=== PATIENT | female | born 1935 | race Caucasian/White ===

== ENCOUNTER 2021-04-28 18:27 | Emergency (ER) | payer OTHER ==
[~2021-04-28] VITALS: Ht 157.5 cm; Wt 45.4 kg
[2021-04-28 18:27] VITALS: BP_SYST 160
[2021-04-28 20:08] LABS: ANION GAP 4 (5-15); CALCIUM 9.6 mg/dL (8.4-11.0); CHLORIDE 106 mmol/L (98-107); CREATININE 0.65 mg/dL (0.55-1.30); GLUCOSE 92 mg/dL (70-99); POTASSIUM 3.6 mmol/L (3.5-5.1); SODIUM SERUM 143 mmol/L (136-145); UREA NITROGEN, BLOOD 18 mg/dL (8-21)
[2021-04-28 20:14] LABS: ALANINE AMINOTRANSFERASE 19 U/L (12-78); ALBUMIN 3.8 g/dL (3.4-4.8); ASPARTATE AMINOTRANSFERASE 17 U/L (10-37); TOTAL BILIRUBIN 0.2 mg/dL (0.0-1.0)
[2021-04-28 20:31] LABS: INR 0.9 (0.8-1.2); PROTHROMBIN TIME 9.8 SECS (9.5-12.5)
[2021-04-28 20:40] LABS: BASOPHILS % (AUTO) 0.5 % (0.0-2.0); EOSINOPHILS # (AUTO) 0.1 K/uL (0.0-0.4); EOSINOPHILS % (AUTO) 1.1 % (0.0-4.0); HEMATOCRIT 37.7 % (36-48); HEMOGLOBIN 12.4 g/dL (12.0-16.0); LYMPHOCYTES # (AUTO) 1.6 K/uL (1.0-5.5); LYMPHOCYTES % (AUTO) 26.6 % (20.5-51.5); MEAN CORPUSCULAR HEMOGLOBIN 32 pg (27-31); MEAN CORPUSCULAR HGB CONC 33 % (32-36); MEAN CORPUSCULAR VOLUME 96 fL (79.0-98.0); MONOCYTES # (AUTO) 0.5 K/uL (0.0-1.0); MONOCYTES % (AUTO) 9.1 % (1.7-9.3); NEUTROPHILS # (AUTO) 3.7 K/uL (1.8-7.7); NEUTROPHILS % (AUTO) 62.7 % (40.0-70.0); PLATELET COUNT (AUTO) 193 K/uL (130-430); RED BLOOD CELL COUNT(AUTO) 3.91 MIL/uL (4.2-6.2); RED CELL DISTRIBUTION WIDTH 13.7 % (9.0-15.0); WHITE BLOOD COUNT (AUTO) 5.9 K/uL (4.8-10.8)
[2021-04-28 21:55] VITALS: BP_SYST 142
== END 2021-04-28 21:55 | disposition home or self-care (01) ==
LOC: SED 18:27 → EDBD 18:27 → SED 21:55
DX: S00.03XA Contusion of scalp, initial encounter (principal); I10 Essential (primary) hypertension; W01.198A Fall on same level from slipping, tripping and stumbling with subsequent striking against other object, initial encounter; Y93.89 Activity, other specified; Y92.89 Other specified places as the place of occurrence of the external cause; Y99.8 Other external cause status
CPT/HCPCS: 36415; 70450-TC; 71045; 76376; 80053; 83880; 84484; 85025; 85610-TC; 85730-TC; 93005; 99285

== ENCOUNTER 2021-12-28 06:23 | Inpatient (IN) | payer OTHER, SELFPAY ==
[~2021-12-28] VITALS: Ht 152.4 cm; Wt 39.0 kg
[2021-12-28 06:23] VITALS: BP_SYST 150
[2021-12-28] MEDS ORDERED: NACL 0.9% 1,000 ML IV ONE (06:45)
[2021-12-28] MEDS ORDERED: MORPHINE 4 MG INJ. 4 MG/ML VIAL IVP ONE (06:45)
[2021-12-28] MEDS ORDERED: ONDANSETRON HCL 4 MG/2 ML VIAL IVP ONE (06:45)
[2021-12-28 07:13] LABS: BASOPHILS % (AUTO) 0.5 % (0.0-2.0); EOSINOPHILS # (AUTO) 0.1 K/uL (0.0-0.4); EOSINOPHILS % (AUTO) 1.1 % (0.0-4.0); HEMOGLOBIN 12.3 g/dL (12.0-16.0); LYMPHOCYTES % (AUTO) 10.4 % (20.5-51.5); MEAN CORPUSCULAR HEMOGLOBIN 31 pg (27-31); MEAN CORPUSCULAR HGB CONC 32 % (32-36); MEAN CORPUSCULAR VOLUME 96 fL (79.0-98.0); MONOCYTES # (AUTO) 0.5 K/uL (0.0-1.0); MONOCYTES % (AUTO) 5.5 % (1.7-9.3); NEUTROPHILS # (AUTO) 7.8 K/uL (1.8-7.7); NEUTROPHILS % (AUTO) 82.5 % (40.0-70.0); PLATELET COUNT (AUTO) 164 K/uL (130-430); RED BLOOD CELL COUNT(AUTO) 3.95 MIL/uL (4.2-6.2); WHITE BLOOD COUNT (AUTO) 9.4 K/uL (4.8-10.8)
[2021-12-28 07:33] LABS: PROTHROMBIN TIME 10.5 SECS (9.5-12.5)
[2021-12-28 07:58] LABS: ALANINE AMINOTRANSFERASE 24 U/L (12-78); ALBUMIN 3.8 g/dL (3.4-4.8); ANION GAP 8 (5-15); ASPARTATE AMINOTRANSFERASE 22 U/L (10-37); CALCIUM 8.7 mg/dL (8.4-11.0); CHLORIDE 104 mmol/L (98-107); CREATININE 0.68 mg/dL (0.55-1.30); GLUCOSE 112 mg/dL (70-99); POTASSIUM 3.5 mmol/L (3.5-5.1); SODIUM SERUM 141 mmol/L (136-145); TOTAL BILIRUBIN 0.4 mg/dL (0.0-1.0); UREA NITROGEN, BLOOD 31 mg/dL (8-21)
[2021-12-28] MEDS ORDERED: fentaNYL CITRATE/PF 100 MCG/2 ML AMP IVP ONE ×4 (08:00→10:15)
[2021-12-28] MEDS ORDERED: LIDOCAINE 1% 10 MG/ML, 20 ML MDV INJ ONE (09:40)
[2021-12-28] MEDS ORDERED: SEVOFLURANE 15 MIN GAS INH ONE (09:40)
[2021-12-28] MEDS ORDERED: cefTRIAXone 1 GM VIAL IV ONE (09:40)
[2021-12-28] MEDS ORDERED: PROPOFOL 200MG/ 20ML VIAL (DIPRIVAN) IV ONE (09:40)
[2021-12-28] MEDS ORDERED: METOCLOPRAMIDE HCL 10 MG/2 ML VIAL IVP ONE (09:40)
[2021-12-28] MEDS ORDERED: DEXAMETHASONE SOD PHOSPHATE 4 MG/ML VIAL IVP ONE (09:40)
[2021-12-28] MEDS ORDERED: NS 1000 ML IV.SOLN IV ONE (09:40)
[2021-12-28] MEDS ORDERED: MEPERIDINE 100 MG INJ. 100 MG/ML VIAL IM ONE (09:40)
[2021-12-28] MEDS ORDERED: KETOROLAC TROMETHAMINE 30 MG VIAL IVP ONE (09:40)
[2021-12-28] MEDS ORDERED: ePHEDrine sulfate 50 MG/ML VIAL IVP ONE (09:40)
[2021-12-28] MEDS ORDERED: MIDAZOLAM HCL 5 MG/5 ML VIAL IVP ONE (09:40)
[2021-12-28] MEDS ORDERED: CEFAZOLIN 1 GM IVPB PREMIX 50 ML IV ONE (09:40)
[2021-12-28] MEDS ORDERED: DIPHENHYDRAMINE INJ 50 MG/ML VIAL IVP ONE (10:15)
[2021-12-28] MEDS ORDERED: HYDROmorphone 2 MG/ML VIAL IVP PRN (11:00)
[2021-12-28] MEDS ORDERED: ONDANSETRON HCL 4 MG/2 ML VIAL IVP PRN (11:00)
[2021-12-28 11:39] VITALS: BP_SYST 153
[2021-12-28] MEDS ORDERED: NALOXONE HCL 0.4 MG/ML AMP (NARCAN) IVP PRN (12:00)
[2021-12-28] MEDS: MORPHINE 4 MG INJ. 4 MG/ML VIAL IVP PRN ×3 (12:07→20:13)
[2021-12-28] MEDS: cefTRIAXone 1 GM IVPB PREMIX 50 ML IV SCH (12:09)
[2021-12-28] MEDS: D5/0.45 NS 1,000 ML IV SCH (12:16)
[2021-12-28 12:42] LABS: BILIRUBIN,URINE NEGATIVE (NEGATIVE); BLOOD, URINE NEGATIVE (NEGATIVE); CLARITY/URINE CLEAR (CLEAR); COLOR,URINE YELLOW (YELLOW); GLUCOSE,URINE NEGATIVE (NEGATIVE); KETONES,URINE NEGATIVE (NEGATIVE); LEUKOCYTE ESTERASE ,URINE NEGATIVE (NEGATIVE); NITRITE, URINE NEGATIVE (NEGATIVE); PROTEIN URINE NEGATIVE (NEGATIVE); UROBILINOGEN,URINE 0.2 (0.2-1.0)
[2021-12-28 13:20] LABS: BARBITURATE, URINE NEGATIVE (NEG <=200); BENZODIAZEPINE, URINE NEGATIVE (NEG <=150); CANNABINOID, URINE NEGATIVE (NEG <=50); COCAINE, URINE NEGATIVE (NEG <=150); METHAMPHETAMINES SCREEN,URINE NEGATIVE (NEG <=500); OPIATE, URINE POSITIVE (NEG <=100); PHENCYCLIDINE SCREEN,URINE NEGATIVE (NEG <=25); UR TRICYCLIC ANTIDEPRESSANTS NEGATIVE (NEG <=300); URINE AMPHETAMINE NEGATIVE (NEG <=500); URINE METHADONE NEGATIVE (NEG <=200); URINE OXYCODONE SCREEN POSITIVE (NEG <=100); URINE PROPOXYPHENE SCREEN NEGATIVE (NEG <=300)
[2021-12-28 15:24] VITALS: BP_SYST 153
[2021-12-28 16:37] VITALS: BP_SYST 140
[2021-12-29] MEDS: MORPHINE 4 MG INJ. 4 MG/ML VIAL IVP PRN ×3 (00:19→09:20)
[2021-12-29 05:07] VITALS: BP_SYST 132
[2021-12-29 09:11] VITALS: BP_SYST 124
[2021-12-29] MEDS ORDERED: PANTOPRAZOLE SODIUM 40 MG TAB PO ONE (09:30)
[2021-12-29] MEDS ORDERED: CITALOPRAM HYDROBROMIDE 20 MG TABLET PO ONE (09:30)
[2021-12-29] MEDS ORDERED: GABAPENTIN 100 MG CAPSULE PO ONE (09:30)
[2021-12-29] MEDS ORDERED: LISINOPRIL 10 MG TABLET (PRINIVIL) PO ONE (09:30)
[2021-12-29] MEDS: D5/0.45 NS 1,000 ML IV SCH (11:25)
[2021-12-29] MEDS ORDERED: NALOXONE HCL 0.4 MG/ML AMP (NARCAN) IVP PRN (11:45)
[2021-12-29] MEDS: HYDROmorphone 1 MG/ML INJ. CARTRIDGE IVP PRN ×3 (11:47→20:47)
[2021-12-29] MEDS: cefTRIAXone 1 GM IVPB PREMIX 50 ML IV SCH (13:12)
[2021-12-29 13:18] VITALS: BP_SYST 130
[2021-12-29] MEDS: GABAPENTIN 100 MG CAPSULE PO SCH ×2 (16:32→20:46)
[2021-12-29 17:00] VITALS: BP_SYST 134
[2021-12-29 20:00] VITALS: BP_SYST 105
[2021-12-30] VITALS (8 sets, daily range): BP systolic 95–140
[2021-12-30] MEDS: D5/0.45 NS 1,000 ML IV SCH ×2 (03:00→23:05)
[2021-12-30 06:59] LABS: BASOPHILS % (AUTO) 0.1 % (0.0-2.0); HEMOGLOBIN 9.6 g/dL (12.0-16.0); LYMPHOCYTES # (AUTO) 0.5 K/uL (1.0-5.5); LYMPHOCYTES % (AUTO) 4.2 % (20.5-51.5); MEAN CORPUSCULAR HEMOGLOBIN 31 pg (27-31); MEAN CORPUSCULAR HGB CONC 33 % (32-36); MEAN CORPUSCULAR VOLUME 95 fL (79.0-98.0); MONOCYTES # (AUTO) 1.1 K/uL (0.0-1.0); MONOCYTES % (AUTO) 9.7 % (1.7-9.3); NEUTROPHILS # (AUTO) 9.5 K/uL (1.8-7.7); PLATELET COUNT (AUTO) 98 K/uL (130-430); RED BLOOD CELL COUNT(AUTO) 3.05 MIL/uL (4.2-6.2); RED CELL DISTRIBUTION WIDTH 13.6 % (9.0-15.0)
[2021-12-30 08:02] LABS: ANION GAP 9 (5-15); CALCIUM 8.1 mg/dL (8.4-11.0); CHLORIDE 99 mmol/L (98-107); CREATININE 0.48 mg/dL (0.55-1.30); GLUCOSE 153 mg/dL (70-99); POTASSIUM 3.5 mmol/L (3.5-5.1); SODIUM SERUM 133 mmol/L (136-145); UREA NITROGEN, BLOOD 13 mg/dL (8-21)
[2021-12-30] MEDS: LISINOPRIL 10 MG TABLET (PRINIVIL) PO SCH (08:05)
[2021-12-30] MEDS: PANTOPRAZOLE SODIUM 40 MG TAB PO SCH (08:05)
[2021-12-30] MEDS: GABAPENTIN 100 MG CAPSULE PO SCH ×3 (08:05→20:16)
[2021-12-30] MEDS: CITALOPRAM HYDROBROMIDE 20 MG TABLET PO SCH (08:05)
[2021-12-30] MEDS: MORPHINE 4 MG INJ. 4 MG/ML VIAL IVP PRN (08:07)
[2021-12-30] MEDS: OXYCODONE/ACETAMINOPHEN *10*mg/325 mg TABLET PO PRN ×3 (10:33→19:52)
[2021-12-30] MEDS: cefTRIAXone 1 GM IVPB PREMIX 50 ML IV SCH (12:25)
[2021-12-30] MEDS: HYDROmorphone 1 MG/ML INJ. CARTRIDGE IVP PRN (23:02)
[2021-12-31] VITALS (7 sets, daily range): BP systolic 95–135
[2021-12-31] MEDS: OXYCODONE/ACETAMINOPHEN *10*mg/325 mg TABLET PO PRN ×4 (04:13→21:03)
[2021-12-31] MEDS: GABAPENTIN 100 MG CAPSULE PO SCH ×3 (09:56→20:59)
[2021-12-31] MEDS: LISINOPRIL 10 MG TABLET (PRINIVIL) PO SCH (09:57)
[2021-12-31] MEDS: CITALOPRAM HYDROBROMIDE 20 MG TABLET PO SCH (09:57)
[2021-12-31] MEDS: PANTOPRAZOLE SODIUM 40 MG TAB PO SCH (09:57)
[2021-12-31] MEDS: HYDROmorphone 1 MG/ML INJ. CARTRIDGE IVP PRN (11:13)
[2021-12-31] MEDS: cefTRIAXone 1 GM IVPB PREMIX 50 ML IV SCH (13:50)
[2021-12-31] MEDS: D5/0.45 NS 1,000 ML IV SCH (18:17)
[2022-01-01] MEDS: HYDROmorphone 1 MG/ML INJ. CARTRIDGE IVP PRN ×2 (00:41→14:21)
[2022-01-01] MEDS: MORPHINE 2 MG/ML INJ. SYRINGE IVP PRN ×2 (05:07→17:41)
[2022-01-01 07:50] VITALS: BP_SYST 131
[2022-01-01 08:01] LABS: BASOPHILS % (AUTO) 0.6 % (0.0-2.0); EOSINOPHILS # (AUTO) 0.1 K/uL (0.0-0.4); EOSINOPHILS % (AUTO) 2.3 % (0.0-4.0); HEMATOCRIT 25.4 % (36-48); HEMOGLOBIN 8.5 g/dL (12.0-16.0); LYMPHOCYTES # (AUTO) 0.7 K/uL (1.0-5.5); MEAN CORPUSCULAR HEMOGLOBIN 32 pg (27-31); MEAN CORPUSCULAR HGB CONC 33 % (32-36); MEAN CORPUSCULAR VOLUME 95 fL (79.0-98.0); MONOCYTES # (AUTO) 0.7 K/uL (0.0-1.0); MONOCYTES % (AUTO) 10.3 % (1.7-9.3); NEUTROPHILS % (AUTO) 75.8 % (40.0-70.0); PLATELET COUNT (AUTO) 131 K/uL (130-430); RED BLOOD CELL COUNT(AUTO) 2.67 MIL/uL (4.2-6.2); RED CELL DISTRIBUTION WIDTH 13.4 % (9.0-15.0); WHITE BLOOD COUNT (AUTO) 6.5 K/uL (4.8-10.8)
[2022-01-01 08:03] LABS: ALANINE AMINOTRANSFERASE 22 U/L (12-78); ALBUMIN 2.3 g/dL (3.4-4.8); ANION GAP 7 (5-15); ASPARTATE AMINOTRANSFERASE 24 U/L (10-37); CALCIUM 7.8 mg/dL (8.4-11.0); CHLORIDE 100 mmol/L (98-107); CREATININE 0.47 mg/dL (0.55-1.30); GLUCOSE 163 mg/dL (70-99); POTASSIUM 3.1 mmol/L (3.5-5.1); SODIUM SERUM 136 mmol/L (136-145); TOTAL BILIRUBIN 0.3 mg/dL (0.0-1.0); UREA NITROGEN, BLOOD 17 mg/dL (8-21)
[2022-01-01] MEDS: LISINOPRIL 10 MG TABLET (PRINIVIL) PO SCH (09:00)
[2022-01-01] MEDS: PANTOPRAZOLE SODIUM 40 MG TAB PO SCH (09:00)
[2022-01-01] MEDS: CITALOPRAM HYDROBROMIDE 20 MG TABLET PO SCH (09:00)
[2022-01-01] MEDS: GABAPENTIN 100 MG CAPSULE PO SCH ×3 (09:00→21:33)
[2022-01-01 12:35] VITALS: BP_SYST 113
[2022-01-01 12:47] VITALS: BP_SYST 113
[2022-01-01] MEDS: cefTRIAXone 1 GM IVPB PREMIX 50 ML IV SCH (14:06)
[2022-01-01] MEDS: D5/0.45 NS 1,000 ML IV SCH (14:07)
[2022-01-01] MEDS: OXYCODONE/ACETAMINOPHEN *10*mg/325 mg TABLET PO PRN ×2 (19:14→23:52)
[2022-01-01 20:00] VITALS: BP_SYST 108
[2022-01-01] MEDS ORDERED: POTASSIUM CHLORIDE 20 MEQ/PKT PACKET PO ONE (20:30)
[2022-01-02 00:51] VITALS: BP_SYST 105
[2022-01-02] MEDS: MORPHINE 4 MG INJ. 4 MG/ML VIAL IVP PRN ×3 (04:21→14:34)
[2022-01-02 08:00] VITALS: BP_SYST 164
[2022-01-02] MEDS ORDERED: POTASSIUM CHLORIDE 20 MEQ/PKT PACKET PO ONE (08:30)
[2022-01-02] MEDS: CITALOPRAM HYDROBROMIDE 20 MG TABLET PO SCH (09:30)
[2022-01-02] MEDS: LISINOPRIL 10 MG TABLET (PRINIVIL) PO SCH (09:30)
[2022-01-02] MEDS: GABAPENTIN 100 MG CAPSULE PO SCH ×4 (09:30→22:47)
[2022-01-02] MEDS: PANTOPRAZOLE SODIUM 40 MG TAB PO SCH (09:30)
[2022-01-02] MEDS: D5/0.45 NS 1,000 ML IV SCH (11:19)
[2022-01-02] MEDS: OXYCODONE/ACETAMINOPHEN *10*mg/325 mg TABLET PO PRN ×2 (11:23→15:56)
[2022-01-02 11:36] VITALS: BP_SYST 151
[2022-01-02] MEDS: cefTRIAXone 1 GM IVPB PREMIX 50 ML IV SCH (14:25)
[2022-01-02 16:10] VITALS: BP_SYST 126
[2022-01-02] MEDS: MORPHINE 2 MG/ML INJ. SYRINGE IVP PRN ×2 (22:38→22:45)
[2022-01-03 02:08] VITALS: BP_SYST 154
[2022-01-03] MEDS: MORPHINE 2 MG/ML INJ. SYRINGE IVP PRN ×2 (04:01→08:34)
[2022-01-03 05:11] VITALS: BP_SYST 147
[2022-01-03] MEDS: OXYCODONE/ACETAMINOPHEN *10*mg/325 mg TABLET PO PRN ×3 (06:23→17:42)
[2022-01-03 07:00] LABS: BASOPHILS % (AUTO) 0.4 % (0.0-2.0); EOSINOPHILS % (AUTO) 0.5 % (0.0-4.0); HEMATOCRIT 25.4 % (36-48); HEMOGLOBIN 8.4 g/dL (12.0-16.0); LYMPHOCYTES # (AUTO) 0.9 K/uL (1.0-5.5); LYMPHOCYTES % (AUTO) 9.5 % (20.5-51.5); MEAN CORPUSCULAR HEMOGLOBIN 32 pg (27-31); MEAN CORPUSCULAR HGB CONC 33 % (32-36); MEAN CORPUSCULAR VOLUME 96 fL (79.0-98.0); MONOCYTES % (AUTO) 10.5 % (1.7-9.3); NEUTROPHILS # (AUTO) 7.7 K/uL (1.8-7.7); NEUTROPHILS % (AUTO) 79.1 % (40.0-70.0); PLATELET COUNT (AUTO) 222 K/uL (130-430); RED BLOOD CELL COUNT(AUTO) 2.65 MIL/uL (4.2-6.2); RED CELL DISTRIBUTION WIDTH 13.8 % (9.0-15.0); WHITE BLOOD COUNT (AUTO) 9.8 K/uL (4.8-10.8)
[2022-01-03 07:22] LABS: ALANINE AMINOTRANSFERASE 34 U/L (12-78); ALBUMIN 2.7 g/dL (3.4-4.8); ANION GAP 7 (5-15); ASPARTATE AMINOTRANSFERASE 42 U/L (10-37); CALCIUM 8.5 mg/dL (8.4-11.0); CHLORIDE 99 mmol/L (98-107); CREATININE 0.47 mg/dL (0.55-1.30); GLUCOSE 102 mg/dL (70-99); POTASSIUM 4.1 mmol/L (3.5-5.1); SODIUM SERUM 134 mmol/L (136-145); TOTAL BILIRUBIN 0.6 mg/dL (0.0-1.0); UREA NITROGEN, BLOOD 19 mg/dL (8-21)
[2022-01-03 08:00] VITALS: BP_SYST 109
[2022-01-03] MEDS: CITALOPRAM HYDROBROMIDE 20 MG TABLET PO SCH (08:32)
[2022-01-03] MEDS: LISINOPRIL 10 MG TABLET (PRINIVIL) PO SCH (08:32)
[2022-01-03] MEDS: PANTOPRAZOLE SODIUM 40 MG TAB PO SCH (08:32)
[2022-01-03 11:29] VITALS: BP_SYST 90
[2022-01-03] MEDS: cefTRIAXone 1 GM IVPB PREMIX 50 ML IV SCH (14:06)
[2022-01-03] MEDS: HYDROmorphone 1 MG/ML INJ. CARTRIDGE IVP PRN (15:03)
[2022-01-03] MEDS: GABAPENTIN 100 MG CAPSULE PO SCH (15:04)
[2022-01-03] MEDS ORDERED: GABA-529 PO (15:28)
[2022-01-03] MEDS ORDERED: APIX2.5T PO (15:28)
[2022-01-03] MEDS ORDERED: OMEP20CA15 PO (15:28)
[2022-01-03] MEDS ORDERED: CALC200T47 PO (15:28)
[2022-01-03] MEDS ORDERED: ESCI10TA PO (15:28)
[2022-01-03] MEDS ORDERED: PERC10 PO (15:28)
[2022-01-03] MEDS ORDERED: OXYIR5 PO (15:28)
[2022-01-03] MEDS ORDERED: LISI20TA30 PO (15:28)
[2022-01-03 15:30] VITALS: BP_SYST 91
[2022-01-04] MEDS ORDERED: ENOXAPARIN SODIUM 30 MG/0.3 ML SYRINGE SUBCUT SCH (09:00)
== END 2022-01-03 17:55 | DRG 956 ==
LOC: SED 06:23 → STU 10:51
PROVIDERS: ADMIT Internal Medicine; ATTEND Internal Medicine
PROC: 0QS604Z Reposition Right Upper Femur with Internal Fixation Device, Open Approach (ICD-10-PCS; principal; 2022-01-01 09:45)
DX: S72.141A Displaced intertrochanteric fracture of right femur, initial encounter for closed fracture (principal); S32.591A Other specified fracture of right pubis, initial encounter for closed fracture; M17.11 Unilateral primary osteoarthritis, right knee; F03.90 Unspecified dementia, unspecified severity, without behavioral disturbance, psychotic disturbance, mood disturbance, and anxiety; G62.9 Polyneuropathy, unspecified; I10 Essential (primary) hypertension; Z20.822 Contact with and (suspected) exposure to COVID-19; G89.29 Other chronic pain; M54.9 Dorsalgia, unspecified; R53.81 Other malaise; Z96.651 Presence of right artificial knee joint; I48.91 Unspecified atrial fibrillation; W01.0XXA Fall on same level from slipping, tripping and stumbling without subsequent striking against object, initial encounter; Z79.01 Long term (current) use of anticoagulants; Z79.899 Other long term (current) drug therapy; Z90.49 Acquired absence of other specified parts of digestive tract; Z90.710 Acquired absence of both cervix and uterus; Y93.89 Activity, other specified; Y92.89 Other specified places as the place of occurrence of the external cause; Y99.8 Other external cause status
CPT/HCPCS: 36415; 71045; 72131; 72170-TC; 72192-TC; 73501; 73502; 73560-TC; 76376; 80048; 80053; 80307; 81003; 84484; 85025; 85610-TC; 85730-TC; 86886; 86900; 86901; 87081; 93005; 93306; 96374; 96375; 96376; 97110-GP; 97163-GP; 97530-GP; 99285; G0378; J0690; J0696; J1100; J1170; J1200; J1885; J2001; J2175; J2250; J2270; J2405; J2704; J2765; J3010; J7030